=== PATIENT | female | born 1945 | race Caucasian/White ===

== ENCOUNTER 2021-02-10 14:24 | Outpatient (CLI) | payer OTHER, MEDICARE, SELFPAY ==
--- NOTE | ~2021-02-10 | XR_ITS ---
XR_CERV2-3V_CR DATE: 02/10/2021 15:02 INDICATION: Neck pain TECHNIQUE: AP, open-mouth, lateral, swimmer views COMPARISON: None FINDINGS: There is mild levoscoliosis of the cervical and upper thoracic spine. C1 and C2 are normally aligned and the odontoid process is intact. No fracture or locked facet. No pr evertebral soft tissue swelling. There is 3 mm anterolisthesis at C2-3. There is 2 mm anterolisthesis and severe degenerative disc disease at C3-4. There is severe degenerative disc disease at 2 mm retrolisthesis at C4-5. There is moderately severe degenerative disc disease and 3 mm retrolisthesis at C5-6. There is severe degenerative disc disease at C6-7. IMPRESSION: Severe cervical spondylosis Reviewed, dictated and finalized at [facility]. Reviewed, dictated and finalized at location [facility]. IMPRESSION: Severe cervical spondylosis
== END 2021-02-10 14:25 | disposition home or self-care (01) ==
PROVIDERS: PCP Family Medicine; Visit Provider Family Medicine
DX: M47.812 Spondylosis without myelopathy or radiculopathy, cervical region (principal)
CPT/HCPCS: 72040

== ENCOUNTER 2021-12-03 11:03 | Outpatient (CLI) | payer MEDICARE, OTHER, SELFPAY ==
[2021-12-03 11:44] LABS: Basophils Absolute Auto 0.1 K/mm3 (0.0-0.1); Basophils Percent Auto 0.7 % (0.2-1.2); Eosinophils Absolute Auto 0.1 K/mm3 (0-0.3); Eosinophils Percent Auto 1.5 % (0-4.4); Hemoglobin 14.4 g/dL (12.0-15.0); Immature Granulocyte Absolute 0.06 K/mm3 (0.00-0.031); Immature Granulocyte Percent A 0.8 % (0-0.5); Immature Platelet Fraction Pct 4.8 % (0.9-11.2); Lymphocytes Absolute Auto 2.08 K/mm3 (0.9-3.2); Lymphocytes Percent Auto 27.7 % (18.3-44.2); Mean Corpuscular HGB Conc 31.3 g/dl (32-36); Mean Corpuscular Hemoglobin 30.2 pg (26-34); Mean Corpuscular Volume 96.4 fl (80-100); Mean Platelet Volume 10.8 fl (7.4-10.4); Monocytes Absolute Auto 0.6 K/mm3 (0.1-0.6); Monocytes Percent Auto 7.8 % (2.6-8.5); Neutrophils Absolute Auto 4.6 K/mm3 (1.3-6.7); Neutrophils Percent Auto 61.5 % (45.5-73.1); Platelet Count Result 126 k/mm3 (150-375); Red Blood Count 4.77 M/mm3 (4.2-5.4); Red Cell Distribution Width 12.8 % (11.5-14.5); White Blood Count 7.5 K/mm3 (4.5-10.0)
[2021-12-03 13:34] LABS: Iron 117 ug/dL (37-170)
[2021-12-03 13:36] LABS: Alanine Aminotransferase 17 U/L (4-35); Albumin Level 4.4 g/dL (3.5-5.1); Alkaline Phosphatase 73 U/L (38-126); Anion Gap 8 mmol/L (8-16); Aspartate Amino Transferase 26 U/L (14-36); Bilirubin,Total 0.8 mg/dL (0.2-1.3); Blood Urea Nitrogen 20 mg/dL (7-17); Calcium 9.4 mg/dL (8.4-10.2); Carbon Dioxide 27 mmol/L (22-30); Chloride 103 mmol/L (98-107); Estimated Glomerular Filt Rate > 60; Glucose 115 mg/dL (65-110); Potassium 4.3 mmol/L (3.4-5.0); Sodium 138 mmol/L (137-145)
[2021-12-03 13:49] LABS: Percent Iron Saturation 32 % (20-50)
[2021-12-03 15:03] LABS: Vitamin B12 > 1000.0 pg/mL (239-931)
[2021-12-09 11:06] LABS: Reference Lab Test Result Negative
== END 2021-12-03 11:04 | disposition home or self-care (01) ==
LOC: ANHLAB 11:05
PROVIDERS: PCP Family Medicine; Visit Provider Internal Medicine Hematology & Oncology
DX: D64.9 Anemia, unspecified (principal); D69.59 Other secondary thrombocytopenia
CPT/HCPCS: 36415; 80053; 82607; 82728; 83540; 83550; 85025; 85055; 86023

== ENCOUNTER 2022-09-22 08:54 | Outpatient (CLI) | payer MEDICARE, OTHER, SELFPAY ==
--- NOTE | ~2022-09-22 | CT_ITS ---
EXAMINATION: CT abdomen pelvis wo con DATE: 09/22/2022 09:25 INDICATION: Left lower quadrant abdominal pain. TECHNIQUE: Computed tomography (CT) of the abdomen and pelvis was performed without intravenous contr ast. Automated exposure control and iterative reconstruction technique were employed. The dose-length product was 634.53 mGy-cm. COMPARISON: Chest CT 07/12/2018 FINDINGS: The visualized portions of the lung bases demonstrate mild atelectasis. No pleural effusion . The heart size is normal. There are coronary artery calcifications. No pericardial effusion. There is ectasia of ascending aorta measuring 4.2 cm. There is liver surface nodularity, consistent with ci rrhosis. The gallbladder is normal. Calcifications in the spleen are consistent with old granulomatou s disease. The pancreas and adrenal glands are normal. There are 2 mm and 3 mm stones in right kidney . There are 4 stones in left kidney measuring up to 4 mm . There is a 6 mm mass of fat in left kidney , consistent with an angiomyolipoma. There are scattered diverticula in the colon. There is mild fat stranding adjacent to sigmoid colon, consistent with diverticulitis. There is an ileocolic anastomosi s. There are no pathologically enlarged lymph nodes. There is a paraumbilical portacaval shunt. A spl enorenal venous shunt is noted. There is an umbilical hernia containing fat and approximately 2 mL of fluid. There is mild thoracolumbar spondylosis. There is a hemangioma in T8 vertebral body. IMPRESSION: 1. Mild sigmoid diverticulitis. No perforation or abscess. 2. Cirrhosis of the liver with portal venous hypertension. 3. Umbilical hernia containing fat and approximately 2 mL of fluid. Reviewed, dictated and finalized at location [facility]. [employer]
== END 2022-09-22 08:55 | disposition home or self-care (01) ==
LOC: ANHIMG 08:56
PROVIDERS: PCP Family Medicine; Visit Provider Physician Assistant
DX: K57.32 Diverticulitis of large intestine without perforation or abscess without bleeding (principal); K74.69 Other cirrhosis of liver; K42.9 Umbilical hernia without obstruction or gangrene
CPT/HCPCS: 74176

== ENCOUNTER 2023-03-16 10:47 | Outpatient (CLI) | payer MEDICARE, OTHER, SELFPAY ==
--- NOTE | ~2023-03-16 | CT_ITS ---
EXAMINATION: CT abdomen pelvis wo con DATE: 03/16/2023 11:05 INDICATION: Diverticulitis TECHNIQUE: Computed tomography (CT) of the abdomen and pelvis was performed without intravenous contr ast. The dose-length product was 598.50 mGy-cm. Automated exposure control and iterative reconstructi on technique were employed. COMPARISON: CT dated 09/22/2022. FINDINGS: Heart size normal. Dependent atelectasis. No significant pleural or pericardial effusion. There is cirrhosis of the liver. The spleen contains calcified granulomas. The pancreas is atrophic. The adrenal glands are unremarkable. There are nonobstructing bilateral renal stones. 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 Gallbladder is present. Nonobstructive bowel gas pattern. There is a surgical anastomosis in the right colon. Nonobstructive bowel pattern. Colonic diverticulosis witho ut evidence for diverticulitis. IMPRESSION: 1. No acute abdominal abnormality. 2: Colonic diverticulosis without evidence for acute diverticulitis. 3: Cirrhosis of the liver. 4: Nonobstructing bilateral nephrolithiasis. Reviewed, dictated and finalized at location [facility].
== END 2023-03-16 10:48 | disposition home or self-care (01) ==
LOC: ANHIMG 10:50
PROVIDERS: PCP Family Medicine; Visit Provider Physician Assistant
DX: K74.69 Other cirrhosis of liver (principal); K57.30 Diverticulosis of large intestine without perforation or abscess without bleeding; N20.0 Calculus of kidney
CPT/HCPCS: 74176

== ENCOUNTER 2023-05-11 01:19 | Day surgery (SDC) | payer MEDICARE, OTHER, SELFPAY ==
[2023-05-11 08:36] VITALS: BP 119/94; PULSE 68; RESP 17; TEMP 35.9; O2SAT 96; BMI 29.2
[2023-05-11] MEDS: LACTATED RINGERS 1,000 ML 150 ML IV CONT (08:45)
--- NOTE | 2023-05-11 08:47 | SUR.PREOP ---
Reported to Dr. Hernandez that patient had told me she fell on Monday while outside pulling weeds. She stated she did hit her head but never lost consciousness and feels fine. She was asked if she ever went to her doctor to get checked out but she never did. Vitals signs are stable.
--- NOTE | 2023-05-11 08:57 | WPDANESEPPF ---
Anes - Initial Pre Proc Eval Procedure: Operation Date: 05/11/23 09:30 Proposed Procedures p Screening Colonoscopy - Grabiel Carolina MD Date/Time: 05/11/23 08:57 Surgeon: Grabiel Carolina MD Pre Op Diagnosis: neoplasm screening Patient Data Age: 77 Gender: F Height: 1.65 m Weight: 79.6 kg Last Vital Signs Temp 96.7 F L 05/11/23 08:36 Pulse 68 05/11/23 08:36 Resp 17 05/11/23 08:36 BP 119/94 H 05/11/23 08:36 Pulse Ox 96 05/11/23 08:36 O2 Del Method Room Air 05/11/23 08:36 Allergies Allergy/AdvReac Type Severity Reaction Status Date / Time No Known Allergies Allergy Verified 05/11/23 08:34 Home Medications Medication Instructions Recorded Confirmed Type blood sugar diagnostic (Blood #100 ea 11/12/19 05/11/23 Rx Glucose Test strips) blood-glucose meter (Blood Glucose #1 ea 11/12/19 05/11/23 Rx Monitoring kit) lancets #200 ea 11/12/19 05/11/23 Rx albuterol sulfate 90 mcg/actuation 1 puff inhalation Q4H PRN 07/24/20 05/11/23 Rx aerosol inhaler shortness of breath or wheezing #6.7 grams tiotropium 2.5 mcg-olodaterol 2.5 2 puff inhalation Q24H #4 grams 07/24/20 05/11/23 Rx mcg/actuation mist for inhalation (Stiolto Respimat) alprazolam 0.5 mg tablet (Xanax) 0.5 mg PO BID PRN anxiety #60 tabs 01/25/23 05/11/23 Rx metoprolol succinate 50 mg 50 mg PO DAILY #90 tabs 03/31/23 05/11/23 Rx tablet,extended release 24 hr Calcium 600 + D(3) 1 cap PO DAILY 05/02/23 05/11/23 History ascorbic acid (vitamin C) 500 mg 500 mg PO DAILY 05/02/23 05/11/23 History tablet biotin 5,000 mcg sublingual tablet 5,000 mcg DAILY 05/02/23 05/11/23 History cholecalciferol (vitamin D3) 125 125 mcg PO DAILY 05/02/23 05/11/23 History mcg (5,000 unit) tablet (Vitamin D3) diclofenac sodium 75 mg 75 mg PO BID 05/02/23 05/11/23 History tablet,delayed release escitalopram oxalate 20 mg tablet 20 mg PO DAILY 05/02/23 05/11/23 History eszopiclone 3 mg tablet 3 mg PO HS 05/02/23 05/11/23 History folic acid 1 mg tablet 1,000 mcg PO DAILY 05/02/23 05/11/23 History mecobalamin (vitamin B12) 1,000 1,000 mcg PO DAILY 05/02/23 05/11/23 History mcg chewable tablet omega-3 fatty acids-vitamin E 1 cap PO DAILY 05/02/23 05/11/23 History 1,000 mg capsule oxybutynin chloride 5 mg tablet 5 mg PO QID 05/02/23 05/11/23 History simvastatin 40 mg tablet 40 mg PO DAILY 05/02/23 05/11/23 History vitamin E (dl, acetate) 180 mg 180 mg PO DAILY 05/02/23 05/11/23 History (400 unit) capsule zinc 50 mg tablet 50 mg PO DAILY PRN Cold Symptoms 05/02/23 05/11/23 History Patient hx anesthesia problems: none Family hx anesthesia problems: none Results Review: All pre-operative results and documents have been reviewed as part of the pre-operative evaluation. [facility] Past Medical History Medical History Chronic insomnia Generalized anxiety disorder HLD (hyperlipidemia) HTN (hypertension) Osteoarthritis Overactive bladder Tobacco use Surgical History Surgical History S/P colonoscopic polypectomy S/P tonsillectomy Family History Family History Father Family history of cardiovascular disease Carcinoma of colon Social History Social History Smoking packs per day: 1 Smoking cigarettes per day: 20.0 Years smoked: 30 Smoking pack-years: 30.00 Smoking status: Current every day smoker Tobacco type: cigarettes Second hand tobacco smoke exposure: Yes Alcohol intake: former Substance use: never Substance use type: does not use Living arrangements: with family Occupation/Education: retired Gender identity (if verbalized by the patient): Female Spiritual care concerns: No Anes - Eval Final PreProcedure Day of Procedure 05/11/23 08:57 Patient weight: normal Heart: regular rat
--- NOTE | 2023-05-11 09:20 | PM.HPGS ---
History of Present Illness History of Present Illness Consent: Risks, benefits, and alternatives have been discussed and questions answered. Patient agrees to proceed with procedure. Chief complaint: neoplasm screening Narrative: Binaca Fong is a 77 year old female with history cirrhosis, colon polyp (had partial colectomy due to large polyp ) Review of Systems Constitutional: Constitutional: Denies headache(s) and Denies weakness Eyes: Eyes: Denies blurry vision ENT: Reports Normal hearing present, Denies headache(s) and Denies neck pain Cardiovascular: Cardiovascular: Denies chest pain and Denies dyspnea Respiratory: Respiratory: Denies dyspnea Gastrointestinal: Gastrointestinal: Reports no additional gastrointestinal complaints Genitourinary: Genitourinary: Denies dysuria Musculoskeletal: Musculoskeletal: Denies neck pain Integumentary/Breasts: Skin/Breast: Denies dry skin Neurologic: Reports Normal hearing present, Denies headache(s) and Denies weakness Psychiatric: Psychiatric: Denies anxiety Endocrine: Endocrine: Denies change in body appearance Hematologic/Lymphatic: Hematologic/Lymphatic: Denies easy bleeding Allergic/Immunologic: Allergic/Immunologic: Denies urticaria PMFSH Past Medical History Medical History Chronic insomnia Colon polyp Generalized anxiety disorder HLD (hyperlipidemia) HTN (hypertension) Osteoarthritis Overactive bladder Tobacco use Surgical History Surgical History S/P colonoscopic polypectomy S/P tonsillectomy Family History Family History Father Family history of cardiovascular disease Carcinoma of colon Social History Social History Smoking packs per day: 1 Smoking cigarettes per day: 20.0 Years smoked: 30 Smoking pack-years: 30.00 Smoking status: Current every day smoker Tobacco type: cigarettes Second hand tobacco smoke exposure: Yes Alcohol intake: former Substance use: never Substance use type: does not use Living arrangements: with family Occupation/Education: retired Gender identity (if verbalized by the patient): Female Spiritual care concerns: No Meds Home Medications and Allergies Home Medications Medication Instructions Recorded Confirmed Type blood sugar diagnostic (Blood #100 ea 11/12/19 05/11/23 Rx Glucose Test strips) blood-glucose meter (Blood Glucose #1 ea 11/12/19 05/11/23 Rx Monitoring kit) lancets #200 ea 11/12/19 05/11/23 Rx albuterol sulfate 90 mcg/actuation 1 puff inhalation Q4H PRN 07/24/20 05/11/23 Rx aerosol inhaler shortness of breath or wheezing #6.7 grams tiotropium 2.5 mcg-olodaterol 2.5 2 puff inhalation Q24H #4 grams 07/24/20 05/11/23 Rx mcg/actuation mist for inhalation (Stiolto Respimat) alprazolam 0.5 mg tablet (Xanax) 0.5 mg PO BID PRN anxiety #60 tabs 01/25/23 05/11/23 Rx metoprolol succinate 50 mg 50 mg PO DAILY #90 tabs 03/31/23 05/11/23 Rx tablet,extended release 24 hr Calcium 600 + D(3) 1 cap PO DAILY 05/02/23 05/11/23 History ascorbic acid (vitamin C) 500 mg 500 mg PO DAILY 05/02/23 05/11/23 History tablet biotin 5,000 mcg sublingual tablet 5,000 mcg DAILY 05/02/23 05/11/23 History cholecalciferol (vitamin D3) 125 125 mcg PO DAILY 05/02/23 05/11/23 History mcg (5,000 unit) tablet (Vitamin D3) diclofenac sodium 75 mg 75 mg PO BID 05/02/23 05/11/23 History tablet,delayed release escitalopram oxalate 20 mg tablet 20 mg PO DAILY 05/02/23 05/11/23 History eszopiclone 3 mg tablet 3 mg PO HS 05/02/23 05/11/23 History folic acid 1 mg tablet 1,000 mcg PO DAILY 05/02/23 05/11/23 History mecobalamin (vitamin B12) 1,000 1,000 mcg PO DAILY 05/02/23 05/11/23 History mcg chewable tablet omega-3 fatty acids-vitamin E 1 cap PO DAILY 05/02/23 05/11/23 History 1,000 mg capsule oxy
[2023-05-11 09:40] VITALS: BP 96/57; PULSE 59; RESP 21; O2SAT 95
[2023-05-11 09:50] VITALS: BP 96/57; PULSE 57; RESP 21; O2SAT 95
[2023-05-11 10:00] VITALS: BP 109/66; PULSE 57; RESP 22; O2SAT 96
== END 2023-05-11 10:12 | disposition home or self-care (01) ==
PROVIDERS: PCP Family Medicine; Visit Provider Internal Medicine Gastroenterology
PROC: 0DJD8ZZ Inspection of Lower Intestinal Tract, Via Natural or Artificial Opening Endoscopic (ICD-10-PCS; CPT 45378; principal; 2023-05-11 09:30)
DX: Z12.11 Encounter for screening for malignant neoplasm of colon (principal); K57.30 Diverticulosis of large intestine without perforation or abscess without bleeding; K64.8 Other hemorrhoids; Z98.0 Intestinal bypass and anastomosis status; Z90.49 Acquired absence of other specified parts of digestive tract; Z86.010 Personal history of colon polyps; K74.60 Unspecified cirrhosis of liver; I10 Essential (primary) hypertension; E78.5 Hyperlipidemia, unspecified; F41.1 Generalized anxiety disorder; F17.210 Nicotine dependence, cigarettes, uncomplicated; Z79.51 Long term (current) use of inhaled steroids
CPT/HCPCS: G0105; J2704; J7120

== ENCOUNTER 2024-01-04 08:41 | Outpatient (CLI) | payer MEDICARE, SELFPAY ==
--- NOTE | ~2024-01-04 | CT_ITS ---
CT of the Abdomen and Pelvis: Indication: Microscopic hematuria Technique: 2.5 mm axial scans were obtained through the abdomen and pelvis prior to and following in travenous administration of 130 cc of Omnipaque 350. Dose reduction technique was used on this scan b y utilizing automated exposure control and iterative reconstruction technique. The dose-length produc t (DLP) was 906.58 mGy-cm. Findings: Scans through the lung bases are unremarkable. Suspected subtle nodular contour of the liver, especially the inferior right hepatic lobe. The spleen , pancreas, gallbladder, and adrenal glands are within normal limits. Small bilateral nonobstructing renal stones are present, largest in the left lower pole measuring 4 mm. Tiny left renal angiomyolipo ma noted. There are atherosclerotic calcifications of the aorta. No lymphadenopathy. No bowel obstruction or bowel wall thickening. There is no evidence to suggest acute appendicitis. Images through the pelvis were performed. Urinary bladder unremarkable. No pelvic mass seen. No ascit es. Impression: Small bilateral nonobstructing renal stones, as detailed above. Suspected cirrhotic change of the liver. Reviewed, dictated and finalized at location [facility]. Impression: Small bilateral nonobstructing renal stones, as detailed above. Suspected cirrhotic change of the liver.
--- NOTE | ~2024-01-04 | XR_ITS ---
XR abdomen/kub 1V DATE: 01/04/2024 08:56 INDICATION: Microscopic hematuria TECHNIQUE: 2 AP views COMPARISON: January 04, 2024 CT abdomen pelvis without and with IV contrast material FINDINGS: 1 small upper pole right renal calcified calculus and 2 small lower pole left renal calcifi ed calculi are noted. No visceromegaly is evident. The psoas shadows are intact. There is no evidence of bowel obstruction. Surgical clips and sutures overlie the right lower quadrant related to prior bowel resection. There is prominent abdominal aortic and iliac arterial calcification. Prominent bilateral hip osteoarthritis. IMPRESSION: Postoperative change of the bowel, right midabdomen Bilateral nephrolithiasis Atherosclerosis Reviewed, dictated and finalized at [facility]. Reviewed, dictated and finalized at location B.
[2024-01-04 09:05] LABS: Estimated Glomerular Filt Rate 48
== END 2024-01-04 08:42 | disposition home or self-care (01) ==
PROVIDERS: PCP Family Medicine; Visit Provider Nurse Practitioner Family
DX: R31.29 Other microscopic hematuria (principal); N20.0 Calculus of kidney; I70.0 Atherosclerosis of aorta
CPT/HCPCS: 74018; 74178; Q9967

== ENCOUNTER 2024-02-06 12:00 | Outpatient (CLI) | payer MEDICARE, SELFPAY ==
--- NOTE | ~2024-02-06 | US_ITS ---
EXAMINATION: US thyroid DATE: 02/06/2024 12:21 INDICATION: Disorder of thyroid TECHNIQUE: Multiple ultrasound images of the thyroid were obtained. COMPARISON: None. FINDINGS: The right thyroid lobe measures 4.8 x 2.1 x 2.2 cm. The left thyroid lobe measures 3.3 x 1.1 x 0.8 c m. 3.0 cm solid wider than tall slightly hypoechoic nodule with smooth margins and without internal echogenic foci. (TI-RADS 4, moderately suspicious , FNA if >=1.5 cm, annual followup is >=1 cm). No o ther thyroid nodules identified. There is diffuse increased vascular flow throughout both thyroid lob es suggestive of thyroiditis. IMPRESSION: 1. 3.0 cm TI RADS 4 right thyroid nodule for which ultrasound guided biopsy would be recommended. 2. Diffuse increased vascular flow throughout the thyroid suggestive of thyroiditis. Reviewed, dictated and finalized at location A. IMPRESSION: 1. 3.0 cm TI RADS 4 right thyroid nodule for which ultrasound guided biopsy wou ld be recommended. 2. Diffuse increased vascular flow throughout the thyroid suggestive of thyroid itis.
== END 2024-02-06 12:01 ==
PROVIDERS: PCP Family Medicine; Visit Provider Otolaryngology
DX: E07.9 Disorder of thyroid, unspecified (principal)
CPT/HCPCS: 76536

== ENCOUNTER 2024-03-08 12:44 | Outpatient (CLI) | payer MEDICARE, SELFPAY ==
--- NOTE | ~2024-03-08 | US_ITS ---
EXAMINATION: US FNA w image guidance DATE: 03/08/2024 13:37 INDICATION: Right thyroid nodule. TECHNIQUE: The procedure and its benefits and risks were discussed with the patient. Risks specifically discusse d included bleeding. The patient verbalized understanding of the risks and agreed to proceed. The nec k was prepped and draped in the usual sterile manner. 1% lidocaine was used for local anesthesia. 6 passes were made with a 25G needle into the lesion under ultrasound guidance. There were no immedia te complications. FINDINGS: Grayscale ultrasound images demonstrate needles advanced into a 2.7 cm nodule in right thyroid lobe f or biopsy. IMPRESSION: 1. Ultrasound-guided fine needle aspiration of a right thyroid nodule. Reviewed, dictated and finalized at location E.
== END 2024-03-08 12:45 | disposition home or self-care (01) ==
LOC: ANHIMG 12:46
PROVIDERS: PCP Family Medicine; Visit Provider Otolaryngology
DX: E07.9 Disorder of thyroid, unspecified (principal)
CPT/HCPCS: 10005; 88172; 88173; 88305

== ENCOUNTER 2024-09-10 17:37 | Emergency (ER) | payer MEDICARE, SELFPAY ==
[2024-09-10] VITALS (9 sets, daily range): BP systolic 107–130; BP diastolic 50–81; PULSE 67–77; RESP 14–282; TEMP 36.4–36.7; O2SAT 94–100
--- NOTE | ~2024-09-10 | XR_ITS ---
EXAMINATION: XR chest 2V Exam Date/Time: 09/10/2024 18:05 FILM LIBRARY CLERK HISTORY: chest pain Comparison: CT chest 07/12/2018. RESULT: Lines, tubes, and devices: None. Lungs and pleura: Clear. Cardiomediastinal silhouette: Aortic ectasia. Dilated central pulmonary arteries as can be seen with pulmonary arterial hypertension. Other: No acute osseous or upper abdominal finding. IMPRESSION: No acute cardiopulmonary process. Reviewed, dictated and finalized at location K. LIBRARY CLERK
--- NOTE | ~2024-09-10 | CT_ITS ---
EXAMINATION: CTA chest PE protocol DATE: 09/10/2024 21:36 INDICATION: cp, elevated dimer TECHNIQUE: Computed tomography angiography (CTA) of the chest was performed with 100 mL Omnipaque-350 intravenous contrast timed to evaluate the pulmonary arteries. Coronal maximum intensity projection 3D-reconstructions were created by the technologist. The dose-length product (DLP) was 237.56 mGy-cm. Automated exposure control and iterative reconstruction technique were employed. COMPARISON: X-ray chest, same date; CT chest 07/12/2018. FINDINGS: Lung parenchyma and airways: Scattered air cysts. Dependent atelectasis. Subtle scattered centrilobul ar nodular opacities in the right upper lung. Patent airways. Pleura: Unremarkable. Thoracic inlet, axillae and chest wall: Right thyroid nodule, thyroid ultrasound performed on 4. Thoracic aorta: Ascending aorta measures up to 4.2 cm. Moderate atherosclerotic calcifications in the descending aorta. No dissection. Mediastinum: Dilated central pulmonary arteries as can be seen with pulmonary arterial hypertension. Heart and pericardium: Mild aortic valve and mitral calcifications. Coronary artery calcifications: Mild. Upper abdomen: No significant finding. Bones: No acute osseous finding. Pulmonary arteries: Study quality: Adequate. No pulmonary emboli detected. IMPRESSION: No CT evidence of acute pulmonary embolus. Right upper lobe opacities may reflect infectious airways disease. Reviewed, dictated and finalized at location K. SSIONS SPECIALIST
--- NOTE | 2024-09-10 17:40 | ECG_ITS ---
Test Date: 2024-09-10 17:55:38 Measurements Intervals [place] Rate: 76 P: 90 IA: 172 QRS: -6 QRSD: 81 T: 34 QT: 394 QTc: 444 Interpretive Statements SINUS RHYTHM POSSIBLE RIGHT VENTRICULAR CONDUCTION DELAY [RSR (QR) IN V1/V2] No previous ECG available for comparison Electronically Signed On 09-11-2024 11:48:14 [employer] by Lesly Kirk
--- NOTE | 2024-09-10 17:53 | ED_ITS ---
HPI - Chest Pain General Chief Complaint: Chest Pain <Breanna Dotson PA-C - Last Filed: 09/11/24 12:29> Stated Complaint: chest pain <Breanna Dotson PA-C - Last Filed: 09/11/24 12:29> Time Seen by Provider: 09/10/24 17:53 <Breanna Dotson PA-C - Last Filed: 09/11/24 12:29> Focused HPI: This is a 78 year old female that presents to the ER for right sided chest heaviness. Worse with breathing. Started about 2 this afternoon. She was in a meeting when it started. Reports she took an Ativan with some relief. Denies shortness of breath, lower extremity edema. GENERAL: Well-appearing, well-nourished, and in no acute distress. HEAD: Normocephalic, atraumatic. CHEST: Clear to auscultation. ?No respiratory distress. HEART: Regular rate and rhythm.? NEURO: ?Alert and oriented x3. Patient screened in triage and initial orders placed.? ?Additional care and disposition to be based upon?diagnostic testing and treatment. <Breanna Dotson PA-C - Last Filed: 09/11/24 12:29> History of Present Illness HPI narrative: Agree with the HPI above <Isaac Amaya MD - Last Filed: 09/10/24 22:32> Related Data Home Medications: Home Medications ?Medication ?Instructions ?Recorded ?Confirmed ?Last Taken ?Type Calcium 600 + D(3) 1 cap PO DAILY 05/02/23 03/29/24 Unknown History ascorbic acid (vitamin C) 500 mg 500 mg PO DAILY 05/02/23 03/29/24 Unknown History tablet biotin 5,000 mcg sublingual tablet 5,000 mcg DAILY 05/02/23 03/29/24 Unknown History cholecalciferol (vitamin D3) 125 125 mcg PO DAILY 05/02/23 03/29/24 Unknown History mcg (5,000 unit) tablet (Vitamin D3) folic acid 1 mg tablet 1,000 mcg PO DAILY 05/02/23 03/29/24 Unknown History mecobalamin (vitamin B12) 1,000 1,000 mcg PO DAILY 05/02/23 03/29/24 Unknown History mcg chewable tablet omega-3 fatty acids-vitamin E 1 cap PO DAILY 05/02/23 03/29/24 Unknown History 1,000 mg capsule vitamin E (dl, acetate) 180 mg 180 mg PO DAILY 05/02/23 03/29/24 Unknown History (400 unit) capsule zinc 50 mg tablet 50 mg PO DAILY PRN Cold Symptoms 05/02/23 03/29/24 Unknown History <Breanna Dotson PA-C - Last Filed: 09/11/24 12:29> Allergies/Adverse Reactions: Allergies Allergy/AdvReac Type Severity Reaction Status Date / Time No Known Allergies Allergy Verified 09/10/24 17:56 <Breanna Dotson PA-C - Last Filed: 09/11/24 12:29> Review of Systems 2 Review of Systems: As reviewed above in HPI <Isaac Amaya MD - Last Filed: 09/10/24 22:32> PMFSH Past Medical History Medical History: Medical History Colon polyp Chronic insomnia Tobacco use Generalized anxiety disorder Overactive bladder Osteoarthritis HLD (hyperlipidemia) HTN (hypertension) <Breanna Dotson PA-C - Last Filed: 09/11/24 12:29> Surgical History Surgical History: Surgical History S/P tonsillectomy S/P colonoscopic polypectomy <ALAINA Carrington Last Filed: 09/11/24 12:29> Family History Family History: Family History Father Family history of cardiovascular disease Carcinoma of colon <Breanna Dotson PA-C - Last Filed: 09/11/24 12:29> Social History Social History: Social History Smoking packs per day: 1 Smoking cigarettes per day: 20.0 Years smoked: 30 Smoking pack-years: 30.00 Smoking status: Current every day smoker Tobacco type: cigarettes Second hand tobacco smoke exposure: Yes Alcohol intake: former Substance use: never Substance use type: does not use Living arrangements: with family Occupation/Education: retired Gender identity (if verbalized by the patient): Female Spiritual care concerns: No <Breanna Dotson PA-C - Last Filed: 09/11/24 12:29> Exam 2 Narrative: GENERAL: [Well-appearing, well-nourished, and in no acute distress.] HEAD: [Normocephalic, atraumatic.] EYES: [PERRLA and EOMI.] ENT: Nares clear, no rhinorrhea or epistaxis. Mucous membranes moist. NECK: Supple. CHEST: [Clear to auscultation. No respiratory distress.] HEART: [Regular rate and rhythm]. No murmur heard. [Normal peripheral pulses.] ABDOMEN: [Soft, nondistended], [nontender], [No rigidity or guarding] EXTREMITIES: Normal range of motion. [No edema.] SKIN: Warm, dry, no rash. NEURO: [No focal deficits]. Alert and oriented [x3.] PSYCH: [Normal mood and affect.] <Isaac Amaya MD - Last Filed: 09/10/24 22:32> Course Vital Signs Vital signs: Vital Signs Temperature 98.0 F 09/10/24 17:50 Pulse Rate 75 09/10/24 17:50 Respiratory Rate 18 09/10/24 17:50 Blood Pressure 117/61 09/10/24 17:50 Pulse Oximetry 98 09/10/24 17:50 Oxygen Delivery Room Air 09/10/24 17:50 Temperature 97.6 F 09/10/24 19:39 Pulse Rate 69 09/10/24 21:55 Respiratory Rate 251 H 09/10/24 21:55 Blood Pressure 120/59 L 09/10/24 21:55 Pulse Oximetry 97 09/10/24 21:55 Oxygen Delivery Room Air 09/10/24 19:38 <Breanna Dotson PA-C - Last Filed: 09/11/24 12:29> Vital Signs Temperature 98.0 F 09/10/24 17:50 Pulse Rate 75 09/10/24 17:50 Respiratory Rate 18 09/10/24 17:50 Blood Pressure 117/61 09/10/24 17:50 Pulse Oximetry 98 09/10/24 17:50 Oxygen Delivery Room Air 09/10/24 17:50 Temperature 97.6 F 09/10/24 19:39 Pulse Rate 69 09/10/24 21:55 Respiratory Rate 251 H 09/10/24 21:55 Blood Pressure 120/59 L 09/10/24 21:55 Pulse Oximetry 97 09/10/24 21:55 Oxygen Delivery Room Air 09/10/24 19:38 <Isaac Amaya MD - Last Filed: 09/10/24 22:32> MDM - Chest Pain MDM Narrative Medical decision making narrative: 78-year-old female with a past medical history including COPD, general anxiety disorder, thoracic aortic aneurysm, hypertension. Today patient presents to the emergency depart with a sensation of midsternal crushing chest pain. She describes as AL thin sitting on her chest. Occurred while she was out shopping not doing anything particularly strenuous or exertional. Occurred 2 hours prior to arrival. She took some Ativan as she thought she might just be having a panic attack but only had minimal relief from his symptoms. When she arrived to the emergency department her symptoms slowly got better and now she has very minimal pain at all. She is overall well appearing not in any acute distress and has a reassuring set of vitals with no blood pressure concerns, tachycardia, hypoxia or fever. She has clear breath sounds, warm symmetric well-perfused extremities with no calf pain or tenderness or swelling. Differential includes ACS, pneumonia, pneumothorax, less likely aortic pathology but she does have a known TAA. Very unlikely to be pulmonary embolism given the lack of any surgical procedures, low Wells criteria, lack of calf swelling or any signs of DVT. Will obtain workup including a D-dimer, serial troponins, serial EKG, chest x-ray, CBC, CMP and lipase. She was given aspirin. Workup reveals a slight leukocytosis of 13.5. Hemoglobin of 13.8, normal electrolyte profile. Renal function within normal limits, normal glucose. D- dimer slightly elevated 0.68. LFTs with slightly elevated AST but otherwise unremarkable. Initial troponin is negative. Negative lipase. Chest x-rays independent reviewed also insert per dL G. There is an ectatic aorta but otherwise no acute cardiopulmonary process. Given the elevated dimer CT angiography was further ordered given patient's complaints of chest pain and her risk factors raising suspicion although overall she is well appearing with normal vitals I do not suspect acute pulmonary or aortic pathology. Second troponin was also negative and no significant interval change from the EKG on my interpretation. A I independently reviewed the CT angiography results and I do not appreciate any kind of acute embolic event or aortic process. She has an aortic aneurysm that measures 4.2 cm but seems stable from her previous. Review by Radiology shows no acute evidence of a PE but they do comment on some right upper lobe opacities reflective of infectious airway disease. Given patient's concern of chest pain that is since resolved and the CT findings I believe we should treat her empirically for pneumonia that is likely community-acquired. I relayed this information to the patient and she states that she felt significantly improved and thought she more likely had a panic attack that led to her chest discomfort. She was agreeable to try antibiotics especially with the scan showing some opacities. We will send her home with a combination of therapies including Augmentin and doxycycline for her comorbidities. She was encouraged to return to the hospital at any time if she has any worsening chest pain, new difficulty in breathing or any other concerning symptoms and otherwise she can safely follow up with regular primary care provider. She verbalized understanding these instructions and felt comfortable being discharged at this time. < Isaac Amaya MD - Last Filed: 09/10/24 22:32> Medical Records Data Attestation: I reviewed the patient's medical records. <Isaac Amaya MD - Last Filed: 09/10/24 22:32> Lab Data Attestation: I reviewed the patient's lab results. <Isaac Amaya MD - Last Filed: 09/10/24 22:32> Result diagrams: 09/10/24 18:08 09/10/24 18:08 <Breanna Dotson PA-C - Last Filed: 09/11/24 12:29> Labs: Lab Results 09/10/24 09/10/24 Range/Units 18:08 20:51 WBC 13.5 H (4.5-10.0) K/mm3 RBC 4.51 (4.2-5.4) M/mm3 Hgb 13.8 (12.0-15.0) g/dL Hct 41.3 (37.0-47.0) % MCV 91.6 (80-100) fl MCH 30.6 (26-34) pg MCHC 33.4 (32-36) g/dl RDW 13.3 (11.5-14.5) % Plt Count 132 L (150-375) k/mm3 MPV 10.4 (7.4-10.4) fl Immature Gran % (Auto) 0.4 (0-0.5) % Neut % (Auto) 76.3 H (45.5-73.1) % Lymph % (Auto) 13.4 L (18.3-44.2) % [place] % (Auto) 9.1 H (2.6-8.5) % Eos % (Auto) 0.5 (0-4.4) % Baso % (Auto) 0.3 (0.2-1.2) % Lymph # (Auto) 1.81 (0.9-3.2) K/mm3 [place] # (Auto) 1.2 H (0.1-0.6) K/mm3 Eos # (Auto) 0.1 (0-0.3) K/mm3 Baso # (Auto) 0.0 (0.0-0.1) K/mm3 Abs Immat Gran (auto) 0.06 H (0.00-0.031) K/mm3 Absolute Neuts (auto) 10.3 H (1.3-6.7) K/mm3 Absolute Nucleated RBC 0.000 (0.0-0.012) K/mm3 Nucleated RBC % 0.0 (0.0-0.2) % PT 14.3 (11.1-14.7) Seconds INR 1.1 APTT 30.0 (22.3-36.8) Seconds D-Dimer 0.68 H (<0.48) ug/mL Sodium 136 L (137-145) mmol/L Potassium 3.8 (3.4-5.0) mmol/L Chloride 110 H (98-107) mmol/L Carbon Dioxide 23 (22-30) mmol/L Anion Gap 3 L (4-12) mmol/L BUN 21 H (7-17) mg/dL Creatinine 0.90 (0.7-1.0) mg/dL Estim Creat Clear Calc 42 ml/min Estimated GFR > 60 (59 - ) Glucose 117 H (65-110) mg/dL Calcium 9.0 (8.4-10.2) mg/dL Total Bilirubin 0.9 (0.2-1.3) mg/dL AST 56 H (14-36) U/L ALT 35 (6-35) U/L Alkaline Phosphatase 80 (38-126) U/L Troponin I < 0.012 < 0.012 (0.000-0.034) ng/mL Total Protein 7.0 (6.3-8.2) g/dL Albumin 4.2 (3.5-5.1) g/dL Lipase 103 (23-300) U/L <Breanna Dotson PA-C - Last Filed: 09/11/24 12:29> Lab Results 09/10/24 09/10/24 Range/Units 18:08 20:51 WBC 13.5 H (4.5-10.0) K/mm3 RBC 4.51 (4.2-5.4) M/mm3 Hgb 13.8 (12.0-15.0) g/dL Hct 41.3 (37.0-47.0) % MCV 91.6 (80-100) fl MCH 30.6 (26-34) pg MCHC 33.4 (32-36) g/dl RDW 13.3 (11.5-14.5) % Plt Count 132 L (150-375) k/mm3 MPV 10.4 (7.4-10.4) fl Immature Gran % (Auto) 0.4 (0-0.5) % Neut % (Auto) 76.3 H (45.5-73.1) % Lymph % (Auto) 13.4 L (18.3-44.2) % [place] % (Auto) 9.1 H (2.6-8.5) % Eos % (Auto) 0.5 (0-4.4) % Baso % (Auto) 0.3 (0.2-1.2) % Lymph # (Auto) 1.81 (0.9-3.2) K/mm3 [place] # (Auto) 1.2 H (0.1-0.6) K/mm3 Eos # (Auto) 0.1 (0-0.3) K/mm3 Baso # (Auto) 0.0 (0.0-0.1) K/mm3 Abs Immat Gran (auto) 0.06 H (0.00-0.031) K/mm3 Absolute Neuts (auto) 10.3 H (1.3-6.7) K/mm3 Absolute Nucleated RBC 0.000 (0.0-0.012) K/mm3 Nucleated RBC % 0.0 (0.0-0.2) % PT 14.3 (11.1-14.7) Seconds INR 1.1 APTT 30.0 (22.3-36.8) Seconds D-Dimer 0.68 H (<0.48) ug/mL Sodium 136 L (137-145) mmol/L Potassium 3.8 (3.4-5.0) mmol/L Chloride 110 H (98-107) mmol/L Carbon Dioxide 23 (22-30) mmol/L Anion Gap 3 L (4-12) mmol/L BUN 21 H (7-17) mg/dL Creatinine 0.90 (0.7-1.0) mg/dL Estim Creat Clear Calc 42 ml/min Estimated GFR > 60 (59 - ) Glucose 117 H (65-110) mg/dL Calcium 9.0 (8.4-10.2) mg/dL Total Bilirubin 0.9 (0.2-1.3) mg/dL AST 56 H (14-36) U/L ALT 35 (6-35) U/L Alkaline Phosphatase 80 (38-126) U/L Troponin I < 0.012 < 0.012 (0.000-0.034) ng/mL Total Protein 7.0 (6.3-8.2) g/dL Albumin 4.2 (3.5-5.1) g/dL Lipase 103 (23-300) U/L <Isaac Amaya MD - Last Filed: 09/10/24 22:32> Imaging Data Attestation: I personally reviewed and interpreted this imaging study as follows: < Isaac Amaya MD - Last Filed: 09/10/24 22:32> My impression: Impressions Chest X-Ray 09/10/24 18:22 IMPRESSION: No acute cardiopulmonary process. <Isaac Amaya MD - Last Filed: 09/10/24 22:32> ECG Data EKG #1: Attestation: I personally reviewed and interpreted this ECG as follows: < Isaac Amaya MD - Last Filed: 09/10/24 22:32> ECG completion date: 09/10/24 <Isaac Amaya MD - Last Filed: 09/10/24 22:32> ECG completion time: 17:55 <Isaac Amaya MD - Last Filed: 09/10/24 22:32> Prior ECG tracings: not available for review <Isaac Amaya MD - Last Filed: 09/10/24 22:32> Interpretation: Normal sinus rhythm, no significant ST segment elevations, depressions or inversions. No ectopy, normal R-wave progression. No previous EKG for comparison purposes. Normal QTC 444, QRS 81, WI 172. Regular rate rhythm an axis. <Isaac Amaya MD - Last Filed: 09/10/24 22:32> Critical Care Time Critical Care Time Critical Care Time: No <Breanna Dotson PA-C - Last Filed: 09/11/24 12:29> Discharge Plan Discharge Clinical Impression: CAP (community acquired pneumonia) Qualifiers: Laterality: right Lung location: upper lobe of lung Qualified Code(s): J18.9 - Pneumonia, unspecified organism Chest pain Qualifiers: Chest pain type: unspecified Qualified Code(s): R07.9 - Chest pain, unspecified <Breanna Dotson PA-C - Last Filed: 09/11/24 12:29> Patient Disposition: Home, Self-Care <Breanna Dotson PA-C - Last Filed: 09/11/24 12:29> Condition: Stable <Breanna Dotson PA-C - Last Filed: 09/11/24 12:29> Instructions: Antibiotic Form, Community Acquired Pneumonia (DC) <Breanna Dotson PA-C - Last Filed: 09/11/24 12:29> Additional Instructions: Your CT scan shows a potentially mild right upper lobe pneumonia. We will treat you with antibiotics and we recommend that you follow-up with your primary care provider on a short-term basis or return with any new or worsening symptoms such as more chest pain, difficulty breathing, nauseousness or any other concerns. <Breanna Dotson PA-C - Last Filed: 09/11/24 12:29> Patient Language: Cuban <Breanna Dotson PA-C - Last Filed: 09/11/24 12:29> Prescriptions: New doxycycline hyclate 100 mg capsule 100 mg PO BID 5 Days Qty: 10 0RF amoxicillin-pot clavulanate 875-125 mg tablet 1 tablet PO Q12H 7 Days Qty: 14 0RF No Action ascorbic acid (vitamin C) 500 mg Tablet 500 mg PO DAILY folic acid 1 mg Tablet 1,000 mcg PO DAILY zinc 50 mg Tablet 50 mg PO DAILY PRN (Reason: Cold Symptoms) Fish Oil 1,000 mg Capsule 1 cap PO DAILY vitamin E (dl, acetate) 180 mg (400 unit) Capsule 180 mg PO DAILY cholecalciferol (vitamin D3) [Vitamin D3] 125 mcg (5,000 unit) Tablet 125 mcg PO DAILY biotin 5,000 mcg Tablet, Sublingual 5,000 mcg DAILY mecobalamin (vitamin B12) 1,000 mcg Tablet,Chewable 1,000 mcg PO DAILY Calcium 600 + D(3) 1 cap PO DAILY (DME) blood-glucose meter [Blood Glucose Monitoring] Kit See Rx Instructions .ROUTE .MEDSUPPLY Qty: 1 0RF Rx Instructions: As directed to check blood sugar once daily (DME) lancets Misc See Rx Instructions .ROUTE .MEDSUPPLY Qty: 200 5RF Rx Instructions: As directed to check blood sugar once daily (DME) Blood Glucose Test Strip See Rx Instructions .ROUTE .MEDSUPPLY Qty: 100 5RF Rx Instructions: As directed to check blood sugar once daily Stiolto Respimat 2.5-2.5 mcg/actuation mist 2 puff INHALATION Q24H Qty: 4 5RF albuterol sulfate 90 mcg/actuation HFA aerosol inhaler 1 puff INHALATION Q4H PRN (Reason: shortness of breath or wheezing) Qty: 6.7 2RF escitalopram oxalate 20 mg tablet 20 mg PO DAILY Qty: 90 2RF Rx Instructions: TAKE 1 TABLET EVERY DAY diclofenac sodium 75 mg tablet,delayed release (DR/EC) See Rx Instructions .ROUTE .COMPLEX Qty: 180 3RF Dose Instruction: TAKE 1 TABLET TWICE DAILY Rx Instructions: TAKE 1 TABLET TWICE DAILY metoprolol succinate 50 mg tablet extended release 24 hr 50 mg PO DAILY Qty: 90 2RF simvastatin 40 mg tablet 40 mg PO DAILY Qty: 90 1RF Rx Instructions: TAKE 1 TABLET EVERY DAY alprazolam [Xanax] 0.5 mg tablet 0.5 mg PO BID PRN (Reason: anxiety) Qty: 60 0RF oxybutynin chloride 5 mg tablet 5 mg PO BID 90 Days Qty: 180 3RF eszopiclone 3 mg tablet 3 mg PO HS Qty: 90 0RF <Breanna Dotson PA-C - Last Filed: 09/11/24 12:29> Follow-up/Referrals: Shaggy Campbell MD [Primary Care Provider] - <Breanna Dotson PA-C - Last Filed: 09/11/24 12:29> Time of Disposition: 22:09 <Breanna Dotson PA-C - Last Filed: 09/11/24 12:29> 22:09 <Isaac Amaya MD - Last Filed: 09/10/24 22:32>
[2024-09-10 18:16] LABS: Basophils Percent Auto 0.3 % (0.2-1.2); Eosinophils Absolute Auto 0.1 K/mm3 (0-0.3); Eosinophils Percent Auto 0.5 % (0-4.4); Hematocrit 41.3 % (37.0-47.0); Hemoglobin 13.8 g/dL (12.0-15.0); Immature Granulocyte Absolute 0.06 K/mm3 (0.00-0.031); Immature Granulocyte Percent A 0.4 % (0-0.5); Lymphocytes Absolute Auto 1.81 K/mm3 (0.9-3.2); Lymphocytes Percent Auto 13.4 % (18.3-44.2); Mean Corpuscular HGB Conc 33.4 g/dl (32-36); Mean Corpuscular Hemoglobin 30.6 pg (26-34); Mean Corpuscular Volume 91.6 fl (80-100); Mean Platelet Volume 10.4 fl (7.4-10.4); Monocytes Absolute Auto 1.2 K/mm3 (0.1-0.6); Monocytes Percent Auto 9.1 % (2.6-8.5); Neutrophils Absolute Auto 10.3 K/mm3 (1.3-6.7); Neutrophils Percent Auto 76.3 % (45.5-73.1); Platelet Count Result 132 k/mm3 (150-375); Red Blood Count 4.51 M/mm3 (4.2-5.4); Red Cell Distribution Width 13.3 % (11.5-14.5); White Blood Count 13.5 K/mm3 (4.5-10.0)
[2024-09-10 18:26] LABS: INR 1.1; Prothrombin Time 14.3 Seconds (11.1-14.7)
[2024-09-10 18:28] LABS: Alanine Aminotransferase 35 U/L (6-35); Albumin Level 4.2 g/dL (3.5-5.1); Alkaline Phosphatase 80 U/L (38-126); Anion Gap 3 mmol/L (4-12); Aspartate Amino Transferase 56 U/L (14-36); Bilirubin,Total 0.9 mg/dL (0.2-1.3); Blood Urea Nitrogen 21 mg/dL (7-17); Carbon Dioxide 23 mmol/L (22-30); Chloride 110 mmol/L (98-107); Estimated CRCL calculation 42 ml/min; Estimated Glomerular Filt Rate > 60; Glucose 117 mg/dL (65-110); Lipase 103 U/L (23-300); Potassium 3.8 mmol/L (3.4-5.0); Sodium 136 mmol/L (137-145)
[2024-09-10 18:40] LABS: Troponin I < 0.012 ng/mL (0.000-0.034)
[2024-09-10 20:07] LABS: D Dimer 0.68 ug/mL (<0.48)
--- NOTE | 2024-09-10 20:42 | ECG_ITS ---
Test Date: 2024-09-10 20:51:10 Measurements Intervals [place] Rate: 62 P: 78 OK: 174 QRS: -5 QRSD: 87 T: 21 QT: 427 QTc: 435 Interpretive Statements SINUS RHYTHM WITH OCCASIONAL SUPRAVENTRICULAR PREMATURE COMPLEXES POSSIBLE RIGHT VENTRICULAR CONDUCTION DELAY [RSR (QR) IN V1/V2] MINIMAL ST DEPRESSION [0.025+ mV ST DEPRESSION] Compared to ECG 09/10/2024 17:55:38 No significant change seen Electronically Signed On 09-11-2024 11:50:16 ESCROW ASSISTANT by Lesly Kirk
[2024-09-10 21:22] LABS: Troponin I < 0.012 ng/mL (0.000-0.034)
== END 2024-09-10 22:23 | disposition home or self-care (01) ==
PROVIDERS: Emergency Medicine; Emergency Provider Student in an Organized Health Care Education/Training Program; PCP Family Medicine
DX: J18.9 Pneumonia, unspecified organism (principal); R07.9 Chest pain, unspecified; E78.5 Hyperlipidemia, unspecified; I10 Essential (primary) hypertension; F41.9 Anxiety disorder, unspecified; F17.210 Nicotine dependence, cigarettes, uncomplicated
CPT/HCPCS: 36415; 71046; 71275; 80053; 83690; 84484; 85025; 85380; 85610; 85730; 93005; 99284; Q9967